=== PATIENT | female | born 1960 | race African-American/Black ===

== ENCOUNTER 2016-08-12 21:09 | Emergency (ER) | payer OTHER ==
[~2016-08-12] VITALS: Ht 165.1 cm; Wt 95.5 kg
[~2016-08-12 21:09] MED LIST: ADVAIR 500/501 DISK IH; ADVAIR HFA120 INHALA IH; ALEVE220 M2 PO; ASPIR-LOW81 MG PO; AZITHROMYCIN500 M1 PO; BENADRYL25 MG PO; DERMAFUNGAL113 GM TP; DUONEB 2.5-0.5 M3 ML AEROSOL; FLEXERIL10 MG PO; FLONASE16 G1 BOTH NARES; FORTAMET1000 M1 PO; FUROSEMIDE40 MG PO; GABAPENTIN100 MG PO; GABAPENTIN600 MG PO; GUAIFENESIN WI120 M1 PO; LANTUS 10100 UNITS/ SC; LEVAQUIN750 MG PO; LEVEMIR100 UNIT/2 SC; LO-DOSE ASPIRIN81 M1 PO; METFORMIN HCL1000 MG PO; METFORMIN HCL500 MG PO; MOBIC7.5 MG PO; MUCINEX600 MG PO; NATEGLINIDE60 MG PO; NEURONTIN300 MG PO; PERCOCET 5/31 TABLET PO; PRAVASTATIN SOD80 MG PO; PREDNISONE10 MG PO; PREDNISONE20 MG PO; PROAIR HFA8.5 GM IH; PULMICORT0.5 MG/21 AEROSOL; ROBITUSSIN AC,T10 ML PO; SPIRIVA RESPIMAT4 GM IH; ULTRAM50 MG PO
[2016-08-12 21:47] LABS: POINT-OF-CARE METER ID UU13113800; POINT-OF-CARE USER ID PUTMLD10
[2016-08-12 22:16] LABS: INFLUENZA A VIRAL ANTIGEN NEGATIVE; INFLUENZA B VIRAL ANTIGEN NEGATIVE
[2016-08-12 22:42] VITALS: BP 169/110
== END 2016-08-12 22:43 | disposition home or self-care (01) ==
LOC: EME 21:09
PROVIDERS: Physician Assistant
DX: B34.9 Viral infection, unspecified (principal); R50.81 Fever presenting with conditions classified elsewhere; E11.9 Type 2 diabetes mellitus without complications; J44.9 Chronic obstructive pulmonary disease, unspecified; Z87.891 Personal history of nicotine dependence
CPT/HCPCS: 71020; 82948; 87502; 99281; 99284

== ENCOUNTER 2016-10-23 12:51 | Inpatient (IN) | payer OTHER ==
[~2016-10-23] VITALS: Ht 162.6 cm; Wt 110.8 kg
[2016-10-23 13:42] LABS: EOSINOPHIL (%) 1.2 % (0-5); EOSINOPHIL COUNT 0.1 K/uL (0-0.3); IMMATURE GRANULOCYTE (%) 0.3 % (0.0-0.7); INSTRUMENT ABS NEUTROPHIL CT 6.9 K/uL; LYMPHOCYTE COUNT 3.6 K/uL (1.0-2.8); MCH 28.6 PG (29.0-34.0); MCHC 32.7 G/DL (30.0-36.0); MCV 87.5 FL (83-99); MEAN PLAT.VOLUME 8.7 uM^3 (9.5-12.4); MONOCYTE (%) 6.4 % (3-12); MONOCYTE COUNT 0.7 K/uL (0-0.8); NEUTROPHIL (%) 60.3 % (45-76); NEUTROPHIL COUNT 6.9 K/uL (1.8-6.4); PLATELET COUNT 287 K/uL (156-360); RBC DIS.WIDTH-CV 12.6 % (11.8-14.6); RBC DIS.WIDTH-SD 40.2 % (39-53); RED BLOOD COUNT 4.23 M/uL (3.80-5.20); WHITE BLOOD COUNT 11.4 K/uL (4.1-10.2)
[2016-10-23 13:53] LABS: CHLORIDE 103 mEq/L (99-109); POTASSIUM 3.7 mEq/L (3.7-5.4); SODIUM 142 mEq/L (136-147)
[2016-10-23 13:55] LABS: GLUCOSE 248 mg/dL (70-99)
[2016-10-23 13:57] LABS: ANION GAP 11 MEQ/L (2-14); TOTAL BILIRUBIN 0.4 mg/dL (0.0-1.0)
[2016-10-23 13:59] LABS: ALKALINE PHOSPHATASE 116 IU/L (3-129); GFR ESTIMATE (CALCULATED) > 59 mL/min/
[2016-10-23 14:00] LABS: UREA NITROGEN (BUN) 9 mg/dL (9-23)
[2016-10-23 14:03] LABS: TROP-I INTERPRETATION NEGATIVE; TROPONIN-I < 0.01 ng/mL (0.0-0.30)
[2016-10-23] MEDS ORDERED: PROAIR HFA8.5 GM IH (15:00)
[2016-10-23] MEDS ORDERED: GABAPENTIN300 MG PO (15:02)
[2016-10-23 18:44] VITALS: BP 170/72
[2016-10-23 20:00] VITALS: BP 132/70
[2016-10-24] VITALS: BP 130/77
[2016-10-24 03:51] VITALS: BP 128/75
[2016-10-24 06:44] LABS: HEMATOCRIT 34.5 % (36.0-46.0); MCH 28.5 PG (29.0-34.0); MCHC 32.8 G/DL (30.0-36.0); MCV 87.1 FL (83-99); MEAN PLAT.VOLUME 9.2 uM^3 (9.5-12.4); PLATELET COUNT 294 K/uL (156-360); RBC DIS.WIDTH-CV 12.5 % (11.8-14.6); RBC DIS.WIDTH-SD 39.9 % (39-53); RED BLOOD COUNT 3.96 M/uL (3.80-5.20); WHITE BLOOD COUNT 14.7 K/uL (4.1-10.2)
[2016-10-24 07:23] LABS: ANION GAP 10 MEQ/L (2-14); CHLORIDE 97 MEQ/L (99-109); GFR ESTIMATE (CALCULATED) > 59 mL/min/; SAMPLE HEMOLYSIS CHECK 0; SAMPLE ICTERIC CHECK 0; SAMPLE LIPEMIA CHECK 0; UREA NITROGEN (BUN) 19 mg/dL (9-23)
[2016-10-24 07:26] LABS: GLUCOSE 478 mg/dL (70-99); POTASSIUM 4.7 MEQ/L (3.7-5.4); SODIUM 134 MEQ/L (136-147)
[2016-10-24 08:26] VITALS: BP 133/71
[2016-10-24 11:41] VITALS: BP 134/72
[2016-10-24 16:40] VITALS: BP 129/66
[2016-10-24 20:35] VITALS: BP 123/60
[2016-10-24 23:16] LABS: POINT-OF-CARE METER ID UU14188625
[2016-10-25 00:10] VITALS: BP 152/89
[2016-10-25 04:05] VITALS: BP 124/64
[2016-10-25 07:58] VITALS: BP 137/78
[2016-10-25 08:21] LABS: Estimated Average Glucose 266 mg/dL (70-123); HEMOGLOBIN A1c (GLYCOHEMOGLOB) 10.9 % HGB (Below 5.7)
[2016-10-25 11:22] VITALS: BP 121/58
[2016-10-25 12:04] LABS: POINT-OF-CARE METER ID UU14188625
[2016-10-25 15:26] VITALS: BP 135/62
[2016-10-25 20:00] VITALS: BP 176/92
[2016-10-26] VITALS: BP 176/72
[2016-10-26 07:13] LABS: POINT-OF-CARE METER ID UU14188625
[2016-10-26 07:53] VITALS: BP 122/75
[2016-10-26 11:31] VITALS: BP 158/94
[2016-10-26] MEDS ORDERED: PREDNISONE10 MG PO (11:43)
[2016-10-26] MEDS ORDERED: OMNICEF300 MG PO (12:07)
[2016-10-26 13:20] VITALS: BP 167/71
== END 2016-10-26 13:55 | disposition home or self-care (01) | DRG 189 ==
LOC: EME 12:51 → EDOF 16:07 → 5SOUTH 16:07
PROVIDERS: Emergency Medicine; Internal Medicine
PROC: 5A09357 Assistance with Respiratory Ventilation, Less than 24 Consecutive Hours, Continuous Positive Airway Pressure (ICD-10-PCS; principal; 2016-10-23)
DX: J96.01 Acute respiratory failure with hypoxia (principal); J44.0 Chronic obstructive pulmonary disease with (acute) lower respiratory infection; J18.9 Pneumonia, unspecified organism; J44.1 Chronic obstructive pulmonary disease with (acute) exacerbation; J45.901 Unspecified asthma with (acute) exacerbation; E11.42 Type 2 diabetes mellitus with diabetic polyneuropathy; E11.65 Type 2 diabetes mellitus with hyperglycemia; I10 Essential (primary) hypertension; E66.9 Obesity, unspecified; Z68.41 Body mass index [BMI] 40.0-44.9, adult; M19.90 Unspecified osteoarthritis, unspecified site; Z79.4 Long term (current) use of insulin; Z79.82 Long term (current) use of aspirin; Z87.891 Personal history of nicotine dependence
CPT/HCPCS: 36600; 71010; 80048; 80053; 81003; 82803; 82948; 83036; 83605; 83880; 84484; 85025; 85027; 87040; 87449; 87502; 94002; 94640; 94640 76; 94644; 94760; 94799; 99202; 99281; 99285; J0456; J0696; J1100; J1650; J1815; J7050; J7512; J7644

== ENCOUNTER → 2016-12-10 | Outpatient (CLI) | payer OTHER ==
[~2016-12-10] MED LIST changes: +GABAPENTIN300 MG PO; +OMNICEF300 MG PO
== END | disposition home or self-care (01) ==
LOC: RES 07:44
DX: Z02.71 Encounter for disability determination (principal)
CPT/HCPCS: 94060; 94729; 94760

== ENCOUNTER 2017-07-03 17:42 | Observation (INO) | payer OTHER ==
[~2017-07-03] VITALS: Ht 165.1 cm; Wt 120.7 kg
[2017-07-03 18:47] LABS: MCH 29.9 PG (29.0-34.0); MCHC 33.3 G/DL (30.0-36.0); MCV 89.6 FL (83-99); PLATELET COUNT 272 K/uL (156-360); RBC DIS.WIDTH-CV 12.6 % (11.8-14.6); RBC DIS.WIDTH-SD 41.4 % (39-53); RED BLOOD COUNT 4.02 M/uL (3.80-5.20); WHITE BLOOD COUNT 7.9 K/uL (4.1-10.2)
[2017-07-03 18:57] LABS: CHLORIDE 103 mEq/L (99-109); POTASSIUM 4.2 mEq/L (3.7-5.4); SODIUM 137 mEq/L (136-147)
[2017-07-03 18:58] LABS: GLUCOSE 340 mg/dL (70-99)
[2017-07-03 19:02] LABS: CREATININE 0.9 mg/dL (0.6-1.3); GFR ESTIMATE (CALCULATED) > 59 mL/min/
[2017-07-03 19:03] LABS: UREA NITROGEN (BUN) 16 mg/dL (9-23)
[2017-07-03 19:07] LABS: TROP-I INTERPRETATION NEGATIVE; TROPONIN-I < 0.01 ng/mL (0.0-0.30)
[2017-07-03] MEDS ORDERED: GABAPENTIN300 MG PO (22:08)
[2017-07-03] MEDS ORDERED: NEURONTIN300 MG PO ×2 (22:09→23:05)
[2017-07-03] MEDS ORDERED: HUMALOG100 UNIT/1 SC (22:13)
[2017-07-03] MEDS ORDERED: DUONEB 2.5-0.5 M3 ML AEROSOL (23:12)
[2017-07-03] MEDS ORDERED: BAYER ADVANCED500 MG PO (23:14)
[2017-07-04 02:05] VITALS: BP 164/72
[2017-07-04 02:40] LABS: HDL CHOLESTEROL 35 MG/DL (Desirable>=50); LDL CHOLESTEROL 100 mg/dL (Desirable<100); NON-HDL CHOLESTEROL 127 mg/dL (Desirable<160); TOTAL CHOLESTEROL 162 mg/dL (Desirable<200); TRIGLYCERIDES 133 MG/DL (Normal: <150)
[2017-07-04 05:19] LABS: TROP-I INTERPRETATION NEGATIVE; TROPONIN-I < 0.01 ng/mL (0.0-0.30)
[2017-07-04 08:30] VITALS: BP 134/63
[2017-07-04 11:44] VITALS: BP 130/62
== END 2017-07-04 16:14 | disposition home or self-care (01) ==
LOC: EME 17:42 → EDOF 23:03 → ENRESERV 23:04 → ENPENDDIS 07-04 → ENRESERV 07-04 00:54 → 4EAST 07-04 02:06
PROVIDERS: Hospitalist
DX: R07.9 Chest pain, unspecified (principal); E11.40 Type 2 diabetes mellitus with diabetic neuropathy, unspecified; I10 Essential (primary) hypertension; J44.9 Chronic obstructive pulmonary disease, unspecified; E78.5 Hyperlipidemia, unspecified; Z87.891 Personal history of nicotine dependence; Z88.8 Allergy status to other drugs, medicaments and biological substances; Z79.4 Long term (current) use of insulin
CPT/HCPCS: 71020; 80048; 80061; 82948; 84484; 85027; 90686; 93005; 94640; 94640 76; 99202; 99281; 99285; G0378; J1650; J1815; J2270

== ENCOUNTER 2017-07-18 01:40 | Emergency (ER) | payer OTHER ==
[~2017-07-18] VITALS: Ht 165.1 cm; Wt 119.0 kg
[~2017-07-18 01:40] MED LIST changes: +BAYER ADVANCED500 MG PO; +HUMALOG100 UNIT/1 SC
[2017-07-18 02:06] LABS: BASOPHIL (%) 0.2 % (0-1); EOSINOPHIL (%) 1.2 % (0-5); EOSINOPHIL COUNT 0.1 K/uL (0-0.3); HEMATOCRIT 35.2 % (36.0-46.0); HEMOGLOBIN 11.6 G/DL (11.9-15.5); IMMATURE GRANULOCYTE (%) 0.3 % (0.0-0.7); LYMPHOCYTE (%) 20.4 % (15-42); LYMPHOCYTE COUNT 1.2 K/uL (1.0-2.8); MCH 29.6 PG (29.0-34.0); MCV 89.8 FL (83-99); MONOCYTE (%) 11.4 % (3-12); MONOCYTE COUNT 0.7 K/uL (0-0.8); NEUTROPHIL (%) 66.5 % (45-76); PLATELET COUNT 203 K/uL (156-360); RBC DIS.WIDTH-CV 12.8 % (11.8-14.6); RBC DIS.WIDTH-SD 41.4 % (39-53); RED BLOOD COUNT 3.92 M/uL (3.80-5.20); WHITE BLOOD COUNT 6.1 K/uL (4.1-10.2)
[2017-07-18 02:12] LABS: INTER. NORMALIZED RATIO 1.1
[2017-07-18 02:15] LABS: PTT 31.1 SEC (25-37)
[2017-07-18 02:17] LABS: CHLORIDE 102 mEq/L (99-109); SODIUM 136 mEq/L (136-147)
[2017-07-18 02:18] LABS: MAGNESIUM 1.9 mg/dL (1.3-2.7)
[2017-07-18 02:22] LABS: GLUCOSE 475 mg/dL (70-99)
[2017-07-18 02:23] LABS: GFR ESTIMATE (CALCULATED) > 59 mL/min/; UREA NITROGEN (BUN) 13 mg/dL (9-23)
[2017-07-18 02:24] LABS: BASE EXCESS 2.6 mEq/L (-3 to +3); BICARBONATE 27.9 mEq/L (22-26); CARBOXY HGB 1.9 % (0-5); METHEMOGLOBIN 0.8 % (0-1.5); PO2 91 mm Hg (80-100)
[2017-07-18 02:25] LABS: COMMENTS - BLOOD GASES C+; DEVICE NC; O2 FLOW 2 L/MIN; PCO2 45 mm Hg (35-45); SITE LB; TOTAL RESP RATE 19 resp/min
[2017-07-18 02:27] LABS: TROP-I INTERPRETATION NEGATIVE; TROPONIN-I < 0.01 ng/mL (0.0-0.30)
[2017-07-18] MEDS ORDERED: DECADRON4 MG PO (04:17)
[2017-07-18] MEDS ORDERED: VENTOLIN HFA18 GM IH (04:17)
[2017-07-18] MEDS ORDERED: ALBUTEROL2.5 MG/3 M IH (04:17)
[2017-07-18] MEDS ORDERED: ZITHROMAX Z-PA250 MG PO (04:17)
[2017-07-18 04:43] VITALS: BP 169/75
== END 2017-07-18 04:46 | disposition home or self-care (01) ==
LOC: EME 01:40
PROVIDERS: Emergency Medicine
DX: J44.0 Chronic obstructive pulmonary disease with (acute) lower respiratory infection (principal); J20.9 Acute bronchitis, unspecified; J44.1 Chronic obstructive pulmonary disease with (acute) exacerbation; E11.9 Type 2 diabetes mellitus without complications; Z79.4 Long term (current) use of insulin; Z87.891 Personal history of nicotine dependence; Z88.8 Allergy status to other drugs, medicaments and biological substances
CPT/HCPCS: 36600; 71045; 80048; 82803; 82948; 83735; 84484; 85025; 85610; 85730; 93005; 94640; 99281; 99285; J2930; J7644

== ENCOUNTER → 2017-12-16 | Outpatient (CLI) | payer OTHER ==
[~2017-12-16] VITALS: Ht 165.1 cm; Wt 114.7 kg
[~2017-12-16] MED LIST changes: +ALBUTEROL2.5 MG/3 M IH; +DECADRON4 MG PO; -HUMALOG100 UNIT/1 SC; +HUMALOG100 UNIT/2 SC; +LANTUS 3 M100 UNITS1 SC; +PROVENTIL,2.5 MG/3 M IH; +VENTOLIN HFA18 GM IH; +ZITHROMAX Z-PA250 MG PO
== END | disposition home or self-care (01) ==
LOC: AMB 09:22
PROVIDERS: Internal Medicine
PROC: 0DJD8ZZ Inspection of Lower Intestinal Tract, Via Natural or Artificial Opening Endoscopic (ICD-10-PCS; principal; 2017-12-16)
DX: Z12.11 Encounter for screening for malignant neoplasm of colon (principal); E11.9 Type 2 diabetes mellitus without complications; J44.9 Chronic obstructive pulmonary disease, unspecified; R94.31 Abnormal electrocardiogram [ECG] [EKG]; Z79.4 Long term (current) use of insulin
CPT/HCPCS: 82948; J2250